=== PATIENT | female | born 1970 | race African-American/Black ===

== ENCOUNTER 2020-02-26 00:48 | Day surgery (SDC) | payer OTHER, SELFPAY ==
[2020-02-25 08:39] VITALS: BMI 35.6
[2020-02-26] VITALS (7 sets, daily range): BP systolic 98–134; BP diastolic 46–73; PULSE 70–87; RESP 10–16; TEMP 36.1–36.2; O2SAT 93–100
--- NOTE | 2020-02-26 11:29 | WPDANESEPPF ---
Anes - Initial Pre Proc Eval Procedure: Operation Date: 02/26/20 12:30 Proposed Procedures p Hysteroscopy, Dilation And Curettage, Insertion Of Liletta Intrauterine Device - Merari Durán MD s Marsupialization And Biopsy Of Bartholin's Cyst - Merari Durán MD Date/Time: 02/26/20 11:29 Surgeon: Merari Durán MD Pre Op Diagnosis: Abnormal Uterine Bleeding/Anemia/Barthalons gland Patient Data Age: 49 Gender: F Height: 5 ft 6 in Weight: 100.24 kg Allergies Allergy/AdvReac Type Severity Reaction Status Date / Time codeine Allergy HIVES, Verified 02/25/20 08:42 SHORTNESS OF BREATH Home Medications Medication Instructions Recorded Confirmed Type bupropion HCl 150 mg PO DAILY 02/25/20 02/25/20 History dextroamphetamine-amphetamine 15 mg PO BID 02/25/20 02/25/20 History ferrous sulfate 325 mg PO BID 02/25/20 02/25/20 History medroxyprogesterone 10 mg PO DAILY 02/25/20 02/25/20 History multivitamin 1 tablet PO DAILY 02/25/20 02/25/20 History venlafaxine 37.5 mg PO DAILY 02/25/20 02/25/20 History Laboratory Tests 02/26/20 11:10 WBC Pending RBC Pending Hgb Pending Hct Pending MCV Pending MCH Pending MCHC Pending RDW Pending Plt Count Pending MPV Pending Patient hx anesthesia problems: none Family hx anesthesia problems: none PMFSH Past Medical History Medical History (Updated 02/26/20 @ 11:29 by Vincent Danielle MD) Depression Anes - Eval Final PreProcedure Day of Procedure 02/26/20 11:29 Patient weight: obese Heart: regular rate and rhythm Lungs: clear to auscultation Airway: Mallampati scale class II Neurological: alert and oriented Last oral intake: >/= 8 hours ASA classification: II Emergent: no Anesthetic plan: proceed Anesthesia type and monitoring: general (givs vs LMA) GIVS and LMA and standard monitoring Informed Consent: The patient's anesthetic plan and its attendant risks and benefits were discussed with the patient/family/POA. Questions were solicited and answers provided to the satisfaction of the patient/family/POA.
[2020-02-26 11:37] LABS: Hemoglobin 8.1 g/dL (12.0-15.0); Mean Corpuscular HGB Conc 28.9 g/dl (32-36); Mean Corpuscular Hemoglobin 22.7 pg (26-34); Mean Corpuscular Volume 78.4 fl (80-100); Mean Platelet Volume 9.1 fl (7.4-10.4); Platelet Count Result 482 k/mm3 (150-375); Red Blood Count 3.57 M/mm3 (4.2-5.4); Red Cell Distribution Width 25.8 % (11.5-14.5); White Blood Count 11.9 K/mm3 (4.5-10.0)
[2020-02-26] MEDS: LACTATED RINGERS 1,000 ML 30 ML IV CONT ×2 (11:44→14:40)
--- NOTE | 2020-02-26 12:55 | PM.HPGS ---
History of Present Illness History of Present Illness Consent: Risks, benefits, and alternatives have been discussed and questions answered. Patient agrees to proceed with procedure. Chief complaint: Abnormal Uterine Bleeding/Anemia/Barthalons gland Narrative: Kim Simons is a 49 year old female seen for first time last week for AUB. Has had constant AUB for couple months and seeking out treatment. I attempted endometrial biopsy in the office but was unsuccessful due to stenotic cervix. She then was scheduled for this procedure, hysteroscopy D&C with possible polypectomy/myomectomy. However, incidentally she complained of a bulge at her vaginal opening as well. An enlarged Bartholin gland was noted. No erythema but appeared to have blood deep to the skin. risk/benefits/altenratives discussed. Plan is for Marsupialization of bartholin gland and biopsy. She did end up bleeding worse after attempted emb. She was called with her preop CBC blood count of <7. So she went to [facility] in [facility] and they transfused her 1 u and started her on medroxyprogeterone to help with bleeding. Today her hb is 8.1. She understands risk of transfusion with the procedure and 2 units have been type and cross matched Review of Systems Review of Systems: All systems reviewed & are unremarkable except as noted in HPI and below PMFSH Past Medical History Medical History Depression Meds Home Medications and Allergies Home Medications Medication Instructions Recorded Confirmed Type bupropion HCl 150 mg PO DAILY 02/25/20 02/25/20 History dextroamphetamine-amphetamine 15 mg PO BID 02/25/20 02/25/20 History ferrous sulfate 325 mg PO BID 02/25/20 02/25/20 History medroxyprogesterone 10 mg PO DAILY 02/25/20 02/25/20 History multivitamin 1 tablet PO DAILY 02/25/20 02/25/20 History venlafaxine 37.5 mg PO DAILY 02/25/20 02/25/20 History Allergies Allergy/AdvReac Type Severity Reaction Status Date / Time codeine Allergy HIVES, Verified 02/25/20 08:42 SHORTNESS OF BREATH Vital Signs Vital Signs - 24 hr 02/26/20 11:14 Temperature 36.1 C L Pulse Rate 79 Respiratory Rate 16 Blood Pressure 134/56 L Pulse Oximetry 100 Exam Const: General: no acute distress HENMT: Ears: TM's normal bilaterally Eyes: Pupils: Equal, round and reactive pupils present EOM: EOMs intact bilaterally Resp: Effort & Inspection: normal respiratory effort Cardio: Rate: regular rate Rhythm: regular rhythm GI: Inspection: non-distended GI Palp: Yes Soft to palpation, No Tenderness to palpation present (GI) and No Guarding due to palpation present (GI) Auscultation: normal bowel sounds : External Female Exam: No normal external appearance Skin: General skin exam: normal color and no rashes or lesions noted Neuro: General: gait normal Speech: normal speech Motor exam (neuro): Normal motor muscle tone present throughout Extrem: General: normal to inspection and normal exam except as noted Right upper extremity: normal to inspection Left upper extremity: normal to inspection Right lower extremity: normal to inspection Left lower extremity: normal to inspection Psych: Mental Status: mental status grossly normal Affect: normal affect and Anxious affect present Assessment and Plan Additional Plan ASSESSMENT: AUB, severe anemia, Bartholin cyst PLAN: Will proceed with hysteroscopy D&C with possible polypectomy vs myomectomy under anesthesia. Type and cross 2u ready on standby. Understands risk of blood transfusion. Will also opt for marsupialization and biopsy of Bartholins cyst. Risk/benefits/alternatives of both procedures discussed.
--- NOTE | 2020-02-26 14:48 | SUR.OPER ---
EBL:20cc
--- NOTE | 2020-02-26 14:56 | P.OP_ITS ---
Procedure Note - Detailed Date of procedure: 02/26/20 Pre-op diagnosis: Abnormal Uterine Bleeding/Anemia/Barthalons gland Post-op diagnosis: same Procedure performed: Hysteroscopy D&C with myosure, marsupialization and I&D of Bartholin Gland Abscess/cyst Description of procedure: The patient was taken to operating room and GLMA was found to be adequate. She was then prepared and draped in dorsal lithotomy in [facility]. The bladder was drained with a sterile catheter. The cervix was visualized wtih a speculum and dark clumpy material was removed from the vagina. Single toothed tenaculum placed on the anterior lip of the cervix and she was sounded to 12 cm. She was serially dilated with heagar dilators and a hysteroscope passed into her uterine cavity with 0.9% saline for distension. Irregularies seen at fundus so the MYOSURE device was used to excise all irregularites out of the endometrium. There was no active bleeding at the end of the case. A LILETTA IUD Lot [id number]; exp 07/2023 was placed and strings trimmed 3cm from external os. The tenaculum was removed and the tenaculum sites were hemostatic. Attention was then turned to the Bartholins cyst where the cyst skin over the cyst was incised with the scalpel and a 1cm opening was cut into the cyst wall and dark liquid material expelled. Cultures were obtained. The edges were sewed in a running fashion with 3-0 vicryl to the external vaginal wall skin to keep the cyst open. The rest of the incised skin was closed with 3-0 vicryl in a running fashion. There was good hemostasis noted. [facility] Surgeon: Merari Durán MD Estimated blood loss (mL): 20 Drains: No Packing: No Pathology: yes (endometrial currettings, bartholin gland culture) Complications: No immediate complications Condition: stable Disposition: PACU Findings: elarged left bartholins gland cyst. irregular endometrium and enlarged uterine cavity
--- NOTE | 2020-02-26 16:25 | SUR.PHASEI ---
[address] HELM OF PAIN SCRIPT AND PT ALLERGY TO CODEINE. PT WANTED SOMETHING ELSE. WILL CALL DR BOLIVAR [address] HELM OF PT REQUEST WAITING FOR ANSWER. 1625 DR HELM CALLED BACK AND WE DISCOUSSED PT REQUEST, PT LEFT A COUPLE OF MINUTES AGO, DIDN'T WANT TO WAIT FOR CALL BACK, PT TOOK HARD COPY OF PRERSCRIPTION, DR HELM AWRE OF THIS. SHE WILL WAIT TO SEE IF PT CALLS OFFICE TOMORROW BEFORE PRESCRIBING SOMETHING DIFFERENT
== END 2020-02-26 15:20 | disposition home or self-care (01) ==
PROVIDERS: Visit Provider Obstetrics & Gynecology
PROC: 0U5B8ZZ Destruction of Endometrium, Via Natural or Artificial Opening Endoscopic (ICD-10-PCS; CPT 58563; principal; 2020-02-26 12:30)
PROC: (CPT 56440; 2020-02-26 12:30)
DX: N93.9 Abnormal uterine and vaginal bleeding, unspecified (principal); N75.1 Abscess of Bartholin's gland; D64.9 Anemia, unspecified; F32.9 Major depressive disorder, single episode, unspecified; E66.9 Obesity, unspecified; Z68.35 Body mass index [BMI] 35.0-35.9, adult
CPT/HCPCS: 56440; 58558; 58300; 36415; 85027; 86850; 86900; 86901; 87070; 87075; 87077; 87205; 88305; J0330; J1100; J2250; J2370; J2405; J2704; J3010; J7030; J7120